=== PATIENT | female | born 1950 | race Caucasian/White ===

== ENCOUNTER 2021-06-24 11:06 | Emergency (ER) | payer OTHER, SELFPAY ==
--- NOTE | 2021-06-24 11:19 | ED.URI ---
HPI - URI/Sore Throat General Chief Complaint: Upper Respiratory Infection Stated Complaint: Body aches Time Seen by Provider: 06/24/21 11:30 Source: patient, family, RN notes reviewed and old records reviewed Mode of arrival: ambulatory Limitations: no limitations History of Present Illness HPI Narrative: 70-year-old female presents to the [facility] with cough, body aches for approximately 1 week. Patient is complaining of fevers. Has a history of COPD last time she used her nebulizer treatment was last night. Patient looks chronically and acutely ill. Patient is approximately 1 pack a day smoker. Does not use oxygen at home MD elicited complaint: cough and other (body aches, shortness of breath) Pertinent past history: COPD Related Data Home Medications Medication Instructions Recorded Confirmed fluticasone fur. 100 mcg-umeclid 1 inhalation INHALATION DAILY 06/01/19 62.5 mcg-vilant 25 mcg inhalat.powder ipratropium 0.5 mg-albuterol 3 mg 3 ml INHALATION Q6H PRN 06/01/19 (2.5 mg base)/3 mL nebulization soln sertraline 100 mg tablet 100 mg PO DAILY 06/01/19 trazodone 50 mg tablet 50 mg PO TID 06/01/19 alendronate mg PO 06/24/21 montelukast mg 06/24/21 06/24/21 Allergies Allergy/AdvReac Type Severity Reaction Status Date / Time No Known Allergies Allergy Verified 06/24/21 11:42 Review of Systems Review of Systems: All systems reviewed & are unremarkable except as noted in HPI and below Constitutional: Constitutional: Reports as per HPI, Reports chills, Reports fever(s) and Denies headache(s) Eyes: Eyes: Reports no additional eye complaints ENT: Reports as per HPI, Denies vertigo, Denies dizziness, Denies headache(s), Denies nasal congestion and Denies sore throat Cardiovascular: Cardiovascular: Reports no additional cardiovascular complaints, Denies chest pain, Denies syncope, Denies rapid heart rate and Denies dyspnea Respiratory: Respiratory: Reports as per HPI, Reports cough, Reports dyspnea and Denies wheezing Gastrointestinal: Gastrointestinal: Reports no additional gastrointestinal complaints, Denies abdominal pain, Denies diarrhea, Denies nausea and Denies vomiting Musculoskeletal: Musculoskeletal: Reports no additional musculoskeletal complaints and Denies numbness Integumentary/Breasts: Skin/Breast: Reports system reviewed and no additional complaints, except as docu Neurologic: Reports system reviewed and no additional complaints, except as documented, Denies vertigo, Denies dizziness, Denies syncope, Denies headache(s), Denies focal weakness and Denies numbness Psychiatric: Psychiatric: Reports no additional psychiatric complaints Allergic/Immunologic: Allergic/Immunologic: Reports no additional allergic/immunologic complaints and Denies wheezing PMFSH Past Medical History Medical History Body mass index (BMI) of 19 or less in adult (11/26/18) Chronic obstructive pulmonary disease, unspecified Depression Essential hypertension Hypoxemia Lung nodule Non-restorative sleep SOB (shortness of breath) Tobacco abuse Surgical History Surgical History History of tubal ligation Family History Family History Mother Diabetes mellitus Sibling Family history of chronic obstructive pulmonary disease Father Family history of lung cancer Social History Social History Smoking packs per day: 1 Smoking cigarettes per day: 20.0 Years smoked: 52 Smoking pack-years: 52.00 Smoking status: Heavy tobacco smoker Comments At the time of my signature, I reviewed and agree with the nursing past medical, surgical, social, and family history. There is no relevant family history pertinent to the patient complaint. Exam Const: General: cooperative, no acute distress, well developed
[2021-06-24 11:30] VITALS: BP 152/104; PULSE 103; RESP 24; TEMP 38.1; O2SAT 94
[2021-06-24] MEDS: IPRATROPIUM BR 0.02% INH SOLN 0.5 MG/2.5 ML VIAL INHALATION (11:49)
[2021-06-24] MEDS: ALBUTEROL SULFATE NEB 2.5 MG/3 ML INH INHALATION (11:49)
[2021-06-24 12:40] VITALS: BP 148/58; PULSE 106; RESP 24; TEMP 38.2; O2SAT 95
[2021-06-25 17:34] LABS: SARS-CoV-2 RNA PCR Positive
== END 2021-06-24 12:50 | disposition home or self-care (01) ==
PROVIDERS: Emergency Provider Nurse Practitioner; PCP Family Medicine
DX: U07.1 COVID-19 (principal); J44.9 Chronic obstructive pulmonary disease, unspecified; I10 Essential (primary) hypertension; F32.A Depression, unspecified
CPT/HCPCS: 87804; 94640; 99213; C9803; G0463; U0003; U0005